=== PATIENT | female | born 1955 ===

== ENCOUNTER 2016-09-10 09:38 | Inpatient (IN) | payer MEDICAID ==
[2016-09-10] MEDS ORDERED: Sodium Chloride 0.9% 1,000 ML IV STA (10:07)
[2016-09-10] MEDS ORDERED: Sodium Chloride 0.9% 1,000 ML ONE (11:02)
[2016-09-10 11:07] LABS: BASO % 0.7 % (0.0-2.0); EOS % 0.6 % (0.0-4.0); HEMATOCRIT 40.2 % (34.0-47.0); LYMPH % 14.3 % (20.0-40.0); MEAN CELL VOLUME 89.7 fL (81.0-99.0); MEAN CORPUSCULAR HEMOGLOBIN 29.6 pg (27.0-31.0); MEAN PLATELET VOLUME 8.5 fL (7.2-11.7); MONO # 0.3 K/uL (0.0-0.8); RED CELL DISTRIBUTION WIDTH 16.4 % (11.5-14.5); WHITE BLOOD COUNT 6.9 K/uL (4.8-10.8)
[2016-09-10 11:28] LABS: CHLORIDE 105 mmol/L (98-107); POTASSIUM 3.2 mmol/L (3.6-5.2); SODIUM 140 mmol/L (132-148)
[2016-09-10 11:30] LABS: AST/SGOT 34 U/L (14-36); BILIRUBIN,TOTAL 0.7 mg/dL (0.2-1.3); CARBON DIOXIDE 21 mmol/L (22-30); GFR AFRICAN-AMERICAN > 60
[2016-09-10 11:31] LABS: ALB/GLOB RATIO 1.3 (1.0-2.1); ALKALINE PHOSPHATASE 81 U/L (38-126); ALT/SGPT 33 U/L (9-52); BLOOD UREA NITROGEN 13 mg/dL (7-17); CALCIUM 9.4 mg/dl (8.6-10.4); GLUCOSE,RANDOM 129 mg/dL (65-105); TOTAL PROTEIN 7.3 g/dL (6.3-8.3)
--- NOTE | 2016-09-10 11:34 | C.PDOC ---
History Of Present Illness 61 year old patient, with a past medical history of hypertension, is brought to the ED by ambulance complaining of feeling dizzy since this morning. She describes her dizziness feels like vertigo. She also complains of nausea and several episodes of vomiting. Patient denies abdominal pain, numbness, weakness , or headache. Time Seen by Provider: 09/10/16 10:07 Chief Complaint (Nursing): GI Problem History Per: Patient History/Exam Limitations: no limitations Onset/Duration Of Symptoms: Worse Since (this morning) Current Symptoms Are (Timing): Still Present Context: Other Associated Symptoms: Nausea, Vomiting Exacerbating Factors: None Alleviating Factors: None Last Bowel Movement: Today Recent travel outside of the [place]: No Past Medical History Reviewed: Historical Data, Nursing Documentation, Vital Signs Vital Signs: Last Vital Signs Temp 97.6 F 09/10/16 12:49 Pulse 62 09/10/16 15:45 Resp 16 09/10/16 15:45 BP 164/87 H 09/10/16 15:45 Pulse Ox 99 09/10/16 15:53 - Medical History PMH: HTN Family History: States: Unknown Family Hx - Social History Hx Alcohol Use: No Hx Substance Use: No - Immunization History Hx Tetanus Toxoid Vaccination: No Hx Influenza Vaccination: No Hx Pneumococcal Vaccination: No Review Of Systems Except As Marked, All Systems Reviewed And Found Negative. Gastrointestinal: Positive for: Nausea, Vomiting. Negative for: Abdominal Pain Neurological: Positive for: Dizziness. Negative for: Weakness, Numbness, Headache Physical Exam - Physical Exam Appears: Non-toxic, No Acute Distress Skin: Warm, Dry Head: Atraumatic, Normacephalic Eye(s): bilateral: PERRL, EOMI, left: Normal Inspection (B/L horizontal and rotatory nystagmus) Ear(s): Bilateral: Normal Nose: Normal Oral Mucosa: Moist Throat: Normal Neck: Normal ROM, Supple Chest: Symmetrical Cardiovascular: Rhythm Regular Respiratory: Normal Breath Sounds, No Rales, No Rhonchi, No Wheezing Gastrointestinal/Abdominal: Soft, No Tenderness Back: Normal Inspection, No CVA Tenderness Extremity: Normal ROM Extremity: Bilateral: Atraumatic Neurological/Psych: Oriented x3, Normal Speech, Normal Cognition, Normal Motor, Normal Sensation Gait: Steady ED Course And Treatment - Laboratory Results Result Diagrams: 09/10/16 11:01 09/10/16 11:01 ECG: Interpreted By Me, Viewed By Wy ECG Rhythm: Sinus Bradycardia Interpretation Of ECG: T inversions in 3 Rate From EC (bpm) O2 Sat by Pulse Oximetry: 99 (room air) Pulse Ox Interpretation: Normal - Other Rad chest x-ray X-Ray: Read By Radiologist (Donna Gallagher MD) Interpretation: HISTORY: dizzy, vomiting. COMPARISON: Chest x-ray performed . TECHNIQUE: Chest, one view. FINDINGS: Examination limited by habitus. LUNGS: Bilateral lower lobe infiltrates. Please note that chest x- ray has limited sensitivity for the detection of pulmonary masses. PLEURA: No significant pleural effusion identified. No definite pneumothorax . CARDIOVASCULAR: Heart size appears top normal. Ectatic aorta. OSSEOUS STRUCTURES: No acute osseous abnormality identified. VISUALIZED UPPER ABDOMEN : Unremarkable. OTHER FINDINGS: None. IMPRESSION: Bilateral lower lobe infiltrates. Heart size appears top normal. Ectatic aorta. - CT Scan/US Head CT Other Rad Studies (CT/US): Read By Radiologist (Donna Gallagher MD), Radiology Report Reviewed CT/US Interpretation: PROCEDURE: CT HEAD WITHOUT CONTRAST. HISTORY: dizzy, vomiting. COMPARISON: None available. TECHNIQUE: Axial computed tomography images were obtained through the head/brain without intravenous contrast. Radiation dose: Total exam DLP = 882.55 mGy-cm. This CT exam was performed using one or more of the following dose reduction techniques: Automated exposure control, adjustment of the mA and/or kV according to patient size, and/ or use of iterative reconstruction technique. FINDINGS: HEMORRHAGE: No intracranial hemorrhage. BRAIN: No mass effect or edema. Intracranial atherosclerotic calcifications. The figueroa-white matter differentiation appears intact. Please note that MRI with diffusion imaging is more sensitive in the detection of acute ischemic event. VENTRICLES: No hydrocephalus. CALVARIUM: Unremarkable. PARANASAL SINUSES: Unremarkable as visualized. No significant inflammatory changes. MASTOID AIR CELLS: Partial opacification of the right mastoid air cells. The left mastoid air cells appear clear. OTHER FINDINGS: Subcutaneous partially calcified nodules probably possibly sebaceous cysts. IMPRESSION: No acute intracranial pathology identified. Partial opacification of the right mastoid air cells. Correlate clinically for possibility of mastoiditis. Progress Note: Plan: Head CT, EKG, Labs, Chest x-ray, IV fluids, Zofran and Antivert po. On re-exam patient feels slightly better, no more vomiting, but still c/o dizziness. case was d/w who accepted patient to his servivce and requested Neurology consult . Progress: Case discussed with Dr. Pierce who is requesting Losartan 25 mg po, Plavix 75 mg po, Lipid profile, thyroid function test, Hemoglobin A1C, Brain MRI without contrast, and carotid duplex study. Disposition - Disposition Disposition: HOSPITALIZED Disposition Time: 15:25 Condition: FAIR - Clinical Impression Clinical Impression: Vertigo - PA / SILK EXAMINER / Resident Statement MD/DO has reviewed & agrees with the documentation as recorded. - Scribe Statement The provider has reviewed the documentation as recorded by the Scribe Thalia Mckinnon All medical record entries made by the Scribe were at my direction and personally dictated by me. I have reviewed the chart and agree that the record accurately reflects my personal performance of the history, physical exam, medical decision making, and the department course for this patient. I have also personally directed, reviewed, and agree with the discharge instructions and disposition. Decision To Admit - Pt Status Changed To: Hospital Disposition Of: Observation - . Bed Request Type: Regular Admitting Physician: Brennan Mckinnon Patient Diagnosis: Vertigo
--- NOTE | 2016-09-10 13:02 | RAD ---
HISTORY: dizzy, vomiting COMPARISON: Chest x-ray performed 06/04/12 TECHNIQUE: Chest, one view. FINDINGS: Examination limited by habitus. LUNGS: Bilateral lower lobe infiltrates. Please note that chest x-ray has limited sensitivity for the detection of pulmonary masses. PLEURA: No significant pleural effusion identified. No definite pneumothorax . CARDIOVASCULAR: Heart size appears top normal. Ectatic aorta. OSSEOUS STRUCTURES: No acute osseous abnormality identified. VISUALIZED UPPER ABDOMEN: Unremarkable. OTHER FINDINGS: None. IMPRESSION: Bilateral lower lobe infiltrates. Heart size appears top normal. Ectatic aorta.
[2016-09-10 13:21] LABS: RBC URINE 1 /hpf (0-3); URINE BACTERIA RARE (<OCC); URINE BILIRUBIN NEGATIVE (NEGATIVE); URINE BLOOD 2+ (NEGATIVE); URINE COLOR Yellow (YELLOW); URINE GLUCOSE (UA) NORMAL (Normal); URINE KETONE NEGATIVE (NEGATIVE); URINE LEUKOCYTE ESTERASE NEG Leu/uL (Negative); URINE PROTEIN 2+ mg/dL (NEGATIVE); URINE UROBILINOGEN NORMAL mg/dL (0.2-1.0); WBC URINE 1 /hpf (0-5)
[2016-09-10] MEDS ORDERED: Losartan 12.5 MG TAB PO STA (15:32)
--- NOTE | 2016-09-10 17:19 | CP.PCM.HP ---
Past Patient History - Infectious Disease Hx of Infectious Diseases: None - Past Social History Smoking Status: Never Smoked - CARDIAC Hx Hypertension: Yes - PSYCHIATRIC Hx Substance Use: No - ANESTHESIA Hx Anesthesia: Yes Meds Allergies/Adverse Reactions: Allergies Allergy/AdvReac Type Severity Reaction Status Date / Time No Known Allergies Allergy Verified 09/10/16 15:47 Physical Exam - Constitutional Appears: Well - Head Exam Head Exam: ATRAUMATIC, NORMAL INSPECTION, NORMOCEPHALIC - Eye Exam Eye Exam: EOMI, Normal appearance, PERRL Pupil Exam: NORMAL ACCOMODATION, PERRL - ENT Exam ENT Exam: Mucous Membranes Moist, Normal Exam - Neck Exam Neck exam: Positive for: Normal Inspection - Respiratory Exam Respiratory Exam: Decreased Breath Sounds - Cardiovascular Exam Cardiovascular Exam: REGULAR RHYTHM, +S1, +S2 - GI/Abdominal Exam GI & Abdominal Exam: Diminished Bowel Sounds, Soft - Rectal Exam Rectal Exam: Deferred Results - Vital Signs Recent Vital Signs: Last Vital Signs Temp 97.6 F 09/10/16 12:49 Pulse 62 09/10/16 15:45 Resp 16 09/10/16 15:45 BP 164/87 H 09/10/16 15:45 Pulse Ox 99 09/10/16 15:53 - Labs Result Diagrams: 09/10/16 11:01 09/10/16 11:01 Labs: Laboratory Results - last 24 hr 09/10/16 09/10/16 16:39 16:39 Hemoglobin A1c 5.4 Triglycerides 137 Cholesterol 206 H LDL Cholesterol Direct 61 HDL Cholesterol 57
[2016-09-10 17:36] LABS: THYROID STIMULATING HORMONE 0.68 mIU/L (0.46-4.68)
[2016-09-10] MEDS ORDERED: Potassium Chloride 20 mEq/15 ml LIQ UD PO ONE (17:47)
[2016-09-10 17:53] LABS: FT3 2.85 pg/mL (2.77-5.27)
[2016-09-10] MEDS: Enoxaparin 40 mg Syringe SC SCH (19:35)
[2016-09-10] MEDS: Sodium Chloride 0.9% 1,000 ML IV SCH (19:39)
[2016-09-10] MEDS: Moxifloxacin IV 400mg/250ml NS 400 MG/250 ML BAG IVPB SCH ×2 (21:00→22:14)
[2016-09-11 06:11] LABS: HEMATOCRIT 37.6 % (34.0-47.0); MEAN CELL VOLUME 89.3 fL (81.0-99.0); MEAN CORPUSCULAR HEMOGLOBIN 29.3 pg (27.0-31.0); MEAN CORPUSCULAR HGB CONC 32.8 g/dL (33.0-37.0); MEAN PLATELET VOLUME 8.5 fL (7.2-11.7); RED CELL DISTRIBUTION WIDTH 16.7 % (11.5-14.5); WHITE BLOOD COUNT 6.3 K/uL (4.8-10.8)
[2016-09-11 06:49] LABS: CHLORIDE 107 mmol/L (98-107); POTASSIUM 3.7 mmol/L (3.6-5.2); SODIUM 142 mmol/L (132-148)
[2016-09-11 06:52] LABS: ALB/GLOB RATIO 1.1 (1.0-2.1); ALKALINE PHOSPHATASE 70 U/L (38-126); ALT/SGPT 28 U/L (9-52); AST/SGOT 24 U/L (14-36); BILIRUBIN,TOTAL 0.8 mg/dL (0.2-1.3); BLOOD UREA NITROGEN 10 mg/dL (7-17); CARBON DIOXIDE 26 mmol/L (22-30); GFR AFRICAN-AMERICAN > 60; GLUCOSE,RANDOM 93 mg/dL (65-105); TOTAL PROTEIN 6.5 g/dL (6.3-8.3)
[2016-09-11 07:14] LABS: THYROID STIMULATING HORMONE 0.79 mIU/L (0.46-4.68)
--- NOTE | 2016-09-11 08:06 | CON ---
DATE: 09/11/2016 ATTENDING PHYSICIAN: Immanuel Mckinnon MD The patient's room #357, bed B. REASON FOR CONSULTATION: Dizziness. CHIEF COMPLAINT: The patient was brought to [facility] ([facility]] with a history of dizziness. Associatin g with nausea and vomiting. She denies any visual or auditory disturbances. However, she admits to nausea and vomiting, was persistent at home. No history of recent travel. No history of recent medi cation. No history of recent fever or flu. PAST MEDICAL HISTORY: Hypertension. PERSONAL HISTORY: Denies smoking or alcohol use. ALLERGIES: No known allergies. MEDICATIONS: Avelox, potassium supplement, Lovenox, pantoprazole, IV fluids with meclizine. PHYSICAL EXAMINATION: VITAL SIGNS: Blood pressure 131/76, mean arterial pressure of 94, respiratory rate 16, temperature a febrile. NECK: Supple. No carotid bruit. HEART: Sounds are regular. CHEST: Fair air entry. EXTREMITIES: No edema in legs. NEUROLOGIC EXAMINATION: MENTAL STATUS EXAMINATION: She is awake, alert, oriented to person, place, and time. Speech is veronica r. Naming, repetition, fluency, comprehension all within normal. CRANIAL NERVE EXAMINATION: Visual field intact. Extraocular movement intact. Pupils reactive to li ght. No facial sensory deficit. Mild facial asymmetry manifesting as a flattening of the left nasol abial fold. Hearing is normal. HEART: Sounds, regular. CHEST: Fair air entry. EXTREMITIES: No edema in legs. MOTOR: Outstretched hand with eyes closed, no drift noted. Power is symmetric on either side. DEEP TENDON REFLEXES: The reflexes in the upper extremities are 2+, both knees are absent, both ankl es are absent. Plantars are downgoing. SENSORY EXAMINATION: Grossly intact. COORDINATION: Vmbpgp-[id number]-oivm test is intact. Extraocular movement shows a right lateral gaze. ____ _ nystagmus noted. COORDINATION: Iyufap-mspj-kjdzla test is intact. GAIT: She is able to stand up on her own. Romberg sign and tandem walking is poor. 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 Considering her risk factors, vertebrobasilar insufficiency should be ruled out. DIAGNOSTIC WORKUP: CT of the head unremarkable. MRI of the brain: No acute pathologies noted. EKG normal sinus rhythm. BLOOD WORKUP: WBC 6.3, hemoglobin 12.3, hematocrit 37.6, platelet 208. Sodium 142, potassium 3.7, c hloride 107, bicarbonate 26, BUN 10, creatinine 0.8. GFR more than 60. Cholesterol 206, LDL 61, HDL 57. TSH 0.68. Urinalysis shows nitrite positive with 2+ blood. RECOMMENDATIONS: IV hydration and proper antibiotic for her urinary tract infection. I agree with a ntiplatelets because of risk factors and her physique. The patient's condition has been discussed with her weight reduction and blood pressure control and d iet restriction is also discussed with her. The patient is stable today. The patient can be discharged and to follow up with me as outpatient. Laith Pierce MD cc: [id number] TT: 09/11/2016 08:05:45 Confirmation # [id number] Dictation # [id number]
--- NOTE | 2016-09-11 10:16 | MRI ---
PROCEDURE: MRI BRAIN WITHOUT CONTRAST HISTORY: vertigo, vomiting COMPARISON: Comparison made with prior CT scan brain 09/10/2016. TECHNIQUE: Multiplanar, multisequence MR images of the brain were obtained without intravenous contrast enhancement. FINDINGS: HEMORRHAGE: No acute parenchymal, subarachnoid or extra-axial hemorrhage. No hemosiderin deposition identified on gradient echo weighted images. DWI: There are rule out acute infarcts seen on diffusion imaging. . BRAIN PARENCHYMA: Minor slightly confluent prolonged T2 signal changes within the periventricular white matter most conspicuous in the subpleural regions. In addition, there are multiple small focal areas of increased T2 signal scattered about the deep and subcortical white matter both cerebral hemispheres as well as brainstem. Changes are most likely represent chronic sequela of small vessel disease. Ventricular and sulcal size are within range of normal this patient's stated VENTRICLES: No evidence of obstructive hydrocephalus. CRANIUM: Unremarkable. ORBITS: Grossly unremarkable. PARANASAL SINUSES/MASTOIDS: Note again made of partial opacification of the right mastoid air complex. Minimal mucosal thickening and/or fluid in the left mastoid air cells. Minor mucosal thickening both maxillary antra as well as a few ethmoid air cells. VASCULAR SYSTEM: Visualized major vascular flow voids at skull base are patent. OTHER FINDINGS: Two small nodular densities within the right posterior superior parietal scalp 1 of which contain some calcification again noted. These findings are seen to better advantage on prior CT scan. IMPRESSION: No acute intracranial hemorrhage. Suspect mild chronic white matter and brainstem ischemic changes as detailed above. Partial opacification right mastoid air complex with minimal mucosal thickening and/or fluid few left-sided mastoid air cells. Minor mucosal thickening both maxillary antra as well as a few ethmoid air cells.
[2016-09-11] MEDS: Enoxaparin 40 mg Syringe SC SCH (11:27)
[2016-09-11] MEDS: Pantoprazole 40 mg EC Tab PO SCH (11:27)
[2016-09-11] MEDS: Potassium Chloride 20 mEq ER Tab PO SCH (11:27)
[2016-09-11] MEDS: Sodium Chloride 0.9% 1,000 ML IV SCH ×2 (11:28→23:28)
--- NOTE | 2016-09-11 12:24 | CP.PCM.PN ---
Subjective - Date & Time of Evaluation Date of Evaluation: 09/11/16 Time of Evaluation: 08:40 - Subjective Subjective: clinically same Objective - Vital Signs/Intake and Output Vital Signs (last 24 hours): Temp Pulse Resp BP Pulse Ox 98.7 F 60 20 129/76 97 09/11/16 08:00 09/11/16 08:00 09/11/16 08:00 09/11/16 08:00 09/11/16 08:00 Intake and Output: 09/11/16 09/11/16 06:59 18:59 Intake Total 1420 Balance 1420 - Medications Medications: Current Medications Atenolol (Tenormin) 50 mg PO DAILY [facility] Enoxaparin Sodium (Lovenox) 40 mg SC DAILY [facility] Last Admin: 09/11/16 11:27 Dose: 40 mg Moxifloxacin HCl (Avelox Iv 400mg/250ml Ns) 400 mg in 250 mls @ 167 mls/hr IVPB Q24H [facility] Last Admin: 09/10/16 22:14 Dose: 167 mls/hr Sodium Chloride (Sodium Chloride 0.9%) 1,000 mls @ 60 mls/hr IV .[id number] [facility] Last Admin: 09/11/16 11:28 Dose: 60 mls/hr Losartan Potassium (Cozaar) 100 mg PO DAILY [facility] Meclizine HCl (Antivert) 25 mg PO Q8H [facility] Last Admin: 09/11/16 11:27 Dose: 25 mg Pantoprazole Sodium (Protonix Ec Tab) 40 mg PO DAILY [facility] Last Admin: 09/11/16 11:27 Dose: 40 mg Pneumococcal Polyvalent Vaccine (Pneumovax 23 Vaccine) 0.5 ml IM .ONCE ONE Stop: 09/12/16 10:01 Potassium Chloride (K-Dur 20 Meq Er Tab) 40 meq PO DAILY [facility] Last Admin: 09/11/16 11:27 Dose: 40 meq - Labs Labs: 09/11/16 05:58 09/11/16 05:58 - Constitutional Appears: Well - Head Exam Head Exam: ATRAUMATIC, NORMAL INSPECTION, NORMOCEPHALIC - Eye Exam Eye Exam: EOMI, Normal appearance, PERRL Pupil Exam: NORMAL ACCOMODATION, PERRL - ENT Exam ENT Exam: Mucous Membranes Moist, Normal Exam - Neck Exam Neck Exam: Full ROM, Normal Inspection. absent: Lymphadenopathy - Respiratory Exam Respiratory Exam: Decreased Breath Sounds - Cardiovascular Exam Cardiovascular Exam: REGULAR RHYTHM, +S1, +S2 - GI/Abdominal Exam GI & Abdominal Exam: Soft, Diminished Bowel Sounds - Rectal Exam Rectal Exam: Deferred
[2016-09-11] MEDS ORDERED: Ergocalciferol 50,000 Intl Units Cap PO SCH (14:15)
--- NOTE | 2016-09-11 14:17 | CP.PCM.PN ---
Subjective - Date & Time of Evaluation Date of Evaluation: 09/11/16 Time of Evaluation: 07:15 - Subjective Subjective: PGY2 Medicine Note - Dr. Winnie Mckinnon's service: Patient seen and examined at bedside this AM. Patient reports resolved dizziness. She also no longer feels nauseous and has not vomited since yesterday. Patient denies fever, chills, chest pain, SOB, constipation, diarrhea. Objective - Vital Signs/Intake and Output Vital Signs (last 24 hours): Temp Pulse Resp BP Pulse Ox 98.7 F 60 20 129/76 97 09/11/16 08:00 09/11/16 08:00 09/11/16 08:00 09/11/16 08:00 09/11/16 08:00 Intake and Output: 09/11/16 09/11/16 06:59 18:59 Intake Total 1420 240 Balance 1420 240 - Medications Medications: Current Medications Atenolol (Tenormin) 50 mg PO DAILY [facility] Enoxaparin Sodium (Lovenox) 40 mg SC DAILY [facility] Last Admin: 09/11/16 11:27 Dose: 40 mg Moxifloxacin HCl (Avelox Iv 400mg/250ml Ns) 400 mg in 250 mls @ 167 mls/hr IVPB Q24H [facility] Last Admin: 09/10/16 22:14 Dose: 167 mls/hr Sodium Chloride (Sodium Chloride 0.9%) 1,000 mls @ 60 mls/hr IV .[id number] [facility] Last Admin: 09/11/16 11:28 Dose: 60 mls/hr Losartan Potassium (Cozaar) 100 mg PO DAILY [facility] Meclizine HCl (Antivert) 25 mg PO Q8H [facility] Last Admin: 09/11/16 11:27 Dose: 25 mg Pantoprazole Sodium (Protonix Ec Tab) 40 mg PO DAILY [facility] Last Admin: 09/11/16 11:27 Dose: 40 mg Pneumococcal Polyvalent Vaccine (Pneumovax 23 Vaccine) 0.5 ml IM .ONCE ONE Stop: 09/12/16 10:01 Potassium Chloride (K-Dur 20 Meq Er Tab) 40 meq PO DAILY [facility] Last Admin: 09/11/16 11:27 Dose: 40 meq - Labs Labs: 09/11/16 05:58 09/11/16 05:58 - Constitutional Appears: Non-toxic, No Acute Distress - Head Exam Head Exam: NORMAL INSPECTION - Eye Exam Eye Exam: EOMI - ENT Exam ENT Exam: Mucous Membranes Moist - Respiratory Exam Respiratory Exam: Clear to Ausculation Bilateral, NORMAL BREATHING PATTERN. absent: Rales, Rhonchi, Wheezes - Cardiovascular Exam Cardiovascular Exam: REGULAR RHYTHM, +S1, +S2. absent: Gallop, Rubs - GI/Abdominal Exam GI & Abdominal Exam: Soft, Normal Bowel Sounds. absent: Tenderness - Extremities Exam Extremities Exam: absent: Pedal Edema - Neurological Exam Neurological Exam: Alert, Awake, Oriented x3 - Psychiatric Exam Psychiatric exam: Normal Affect, Normal Mood - Skin Skin Exam: Normal Color, Warm Assessment and Plan - Assessment and Plan (Free Text) Assessment: Dizziness Head CT - possible mastoiditis (please see full report) Brain MRI - no acute intracranial hemorrhage. Suspect mild chronic white matter and brainstem ischemic changes. Partial opacification right mastoid air complex with minimal mucosal thickening and/or fluid few left-sided mastoid air cells. Minor mucosal thickening both maxillary antra as well as a few ethmoid air cells. EKG - sinus bradycardia at 59 bpm TSH 0.79 Troponin negative Vitamin D 17.8, B12 426 Cholesterol 206, LDL 61, HDL 57 F/U RPR and folate F/U ECHO and carotid US report Neurology consult - Dr. Pierce - recommends outpatient follow up for vestibular neuritis - help appreciated ASA 81mg PO daily Crestor 10mg PO HS Meclizine 25mg PO Q8H Mastoiditis ENT consult - Dr. Baldwin - f/u recs Avelox 400mg IVPB daily ordered by Dr. Winnie Mckinnon Nausea and Vomiting Likely from gastroenteritis Vitamin D deficiency Ergocalciferol [id number] PO weekly UTI UA + nitrates F/U urine culture Prophylaxis Lovenox 40mg SC daily Protonix 40mg PO daily
--- NOTE | 2016-09-11 16:18 | CON ---
DATE: 09/11/2016 REASON FOR CONSULTATION: Fluid in the mastoid air cells, possible mastoiditis. REQUESTING PHYSICIAN: Dr. Mckinnon. HISTORY OF PRESENT ILLNESS: This is a 61-year-old female who was noted to have some fluid in the mas toid air cells on radiology. The patient does not complain of hearing loss, ear pain, ringing in the ear or any ear complaints. PAST MEDICAL HISTORY: As noted in the chart by me. MEDICATIONS: As noted in the chart by me. PHYSICAL EXAMINATION: HEAD: Atraumatic, normocephalic. FACE: Good facial movements bilaterally. CONSTITUTIONAL: Well-developed, well-nourished. COMMUNICATION: Communicates very appropriately. EXTERNAL NOSE AND EARS: No masses, no lesions, no erythema, no edema. INTERNAL NOSE: Deviated septum, no masses, no lesions, no erythema, no edema. ORAL CAVITY, OROPHARYNX: No masses, no lesions, no erythema, no edema. LIPS, GUMS: No masses, no lesions, no erythema, no edema. NECK: Supple. THYROID: No thyromegaly, no goiter. LYMPH NODES: No lymphadenopathy of the neck. CAT scan was reviewed by me. It shows patchy opacification of some of the mastoid air cells on the r ight. There is no evidence of bony destruction. The patient also does not complain of any pain. In ternal nose, deviated septum, no masses, no lesions, no erythema, no edema. ASSESSMENT: 1. Deviated septum. 2. Mastoiditis not noted on the CAT scan and not noted clinically. This patient does not have masto iditis. Anil Baldwin MD cc: [id number] TT: 09/11/2016 16:17:37 Confirmation # [id number] Dictation # [id number]
[2016-09-11] MEDS: Moxifloxacin IV 400mg/250ml NS 400 MG/250 ML BAG IVPB SCH (21:35)
[2016-09-12] MEDS: Sodium Chloride 0.9% 1,000 ML IV SCH ×2 (04:35→21:37)
[2016-09-12] MEDS ORDERED: Pneumococcal 23-Valent Vaccine IM ONE (10:00)
[2016-09-12] MEDS: Pantoprazole 40 mg EC Tab PO SCH (10:17)
[2016-09-12] MEDS: Potassium Chloride 20 mEq ER Tab PO SCH (10:17)
--- NOTE | 2016-09-12 10:19 | CP.PCM.PN ---
Subjective - Date & Time of Evaluation Date of Evaluation: 09/12/16 Time of Evaluation: 08:40 - Subjective Subjective: clinically same Objective - Vital Signs/Intake and Output Vital Signs (last 24 hours): Temp Pulse Resp BP Pulse Ox 97.9 F 62 20 150/92 H 97 09/12/16 00:00 09/12/16 00:00 09/12/16 00:00 09/12/16 00:00 09/12/16 00:00 Intake and Output: 09/12/16 09/12/16 06:59 18:59 Intake Total 1280 Balance 1280 - Medications Medications: Current Medications Aspirin (Ecotrin) 81 mg PO DAILY [facility] Atenolol (Tenormin) 50 mg PO DAILY [facility] Enoxaparin Sodium (Lovenox) 40 mg SC DAILY [facility] Last Admin: 09/11/16 11:27 Dose: 40 mg Ergocalciferol (Drisdol 50,000 Intl Units Cap) 1 cap PO Q7D [facility] Last Admin: 09/11/16 14:43 Dose: 1 cap Moxifloxacin HCl (Avelox Iv 400mg/250ml Ns) 400 mg in 250 mls @ 167 mls/hr IVPB Q24H [facility] Last Admin: 09/11/16 21:35 Dose: 167 mls/hr Sodium Chloride (Sodium Chloride 0.9%) 1,000 mls @ 60 mls/hr IV .[id number] [facility] Last Admin: 09/12/16 04:35 Dose: Not Given Losartan Potassium (Cozaar) 100 mg PO DAILY [facility] Meclizine HCl (Antivert) 25 mg PO Q8H [facility] Last Admin: 09/12/16 02:28 Dose: 25 mg Pantoprazole Sodium (Protonix Ec Tab) 40 mg PO DAILY [facility] Last Admin: 09/11/16 11:27 Dose: 40 mg Potassium Chloride (K-Dur 20 Meq Er Tab) 40 meq PO DAILY [facility] Last Admin: 09/11/16 11:27 Dose: 40 meq Rosuvastatin Calcium (Crestor) 5 mg PO HS [facility] Last Admin: 09/11/16 21:36 Dose: 5 mg - Labs Labs: 09/11/16 05:58 09/11/16 05:58 - Constitutional Appears: Well - Head Exam Head Exam: ATRAUMATIC, NORMAL INSPECTION, NORMOCEPHALIC - Eye Exam Eye Exam: EOMI, Normal appearance, PERRL Pupil Exam: NORMAL ACCOMODATION, PERRL - ENT Exam ENT Exam: Mucous Membranes Moist, Normal Exam - Neck Exam Neck Exam: Full ROM, Normal Inspection. absent: Lymphadenopathy - Respiratory Exam Respiratory Exam: Decreased Breath Sounds - Cardiovascular Exam Cardiovascular Exam: REGULAR RHYTHM, +S1, +S2 - GI/Abdominal Exam GI & Abdominal Exam: Soft, Diminished Bowel Sounds - Rectal Exam Rectal Exam: Deferred
[2016-09-12] MEDS: Enoxaparin 40 mg Syringe SC SCH (10:26)
[2016-09-12 16:38] VITALS: RESP 20
--- NOTE | 2016-09-12 16:45 | CARD ---
APPROVED REPORT EXAM: Two-dimensional and M-mode echocardiogram with Doppler and color Doppler. Other Information Quality : GoodRhythm : NSR INDICATION Dizziness and Vertigo RISK FACTORS Hypertension M-Mode DIMENSIONS RVDd1.11 (2.1-3.2cm)Left Atrium (MM)4.51 (2.5-4.0cm) IVSd1.07 (0.7-1.1cm)Aortic Root2.98 (2.2-3.7cm) LVDd4.72 (4.0-5.6cm)Aortic Cusp Exc.1.21 (1.5-2.0cm) PWd1.17 (0.7-1.1cm)FS (%) 42 % LVDs2.73 (2.0-3.8cm)LVEF (%)73 (>50%) Mitral Valve MV E Jkiiostt07.3cm/sMV A Tztxprcc40.0cm/sE/A ratio0.7 TDI E/Lateral E'0.0E/Medial E'0.0 Tricuspid Valve TR Peak Nteulujx810qa/sTR Peak Gr.[id number] LEFT VENTRICLE The left ventricle is normal size. There is normal left ventricular wall thickness. Left ventricle systolic function is normal. The Ejection Fraction is >70%. There is normal LV segmental wall motion. Tissue Doppler imaging reveals abnormal left ventricular diastolic dysfunction. RIGHT VENTRICLE The right ventricle is normal size. There is normal right ventricular wall thickness. The right ventricular systolic function is normal. ATRIA The left atrium size is normal. The right atrium size is normal. The interatrial septum is intact with no evidence for an atrial septal defect. AORTIC VALVE The aortic valve is normal in structure. No aortic regurgitation is present. There is no aortic valvular stenosis. There is no aortic valvular vegetation. MITRAL VALVE The mitral valve is normal in structure. There is no evidence of mitral valve prolapse. There is no mitral valve stenosis. There is no mitral valve regurgitation noted. TRICUSPID VALVE The tricuspid valve is normal in structure. There is trace tricuspid regurgitation. Right ventricular systolic pressure is estimated at 30 mmHg. There is borderline pulmonary hypertension. PULMONIC VALVE The pulmonic valve is not well visualized. There is no pulmonic valvular regurgitation. GREAT VESSELS The aortic root is normal in size. PERICARDIAL EFFUSION There is no significant pericardial effusion. <Conclusion> Left ventricle systolic function is normal. The Ejection Fraction is >70%. Diastolic dysfunction. No aortic regurgitation is present. There is no mitral valve regurgitation noted. There is trace tricuspid regurgitation. There is borderline pulmonary hypertension. There is no pulmonic valvular regurgitation.
[2016-09-12] MEDS: Moxifloxacin IV 400mg/250ml NS 400 MG/250 ML BAG IVPB SCH (21:35)
[2016-09-13] MEDS: Sodium Chloride 0.9% 1,000 ML IV SCH (03:04)
--- NOTE | 2016-09-13 08:42 | CARD ---
APPROVED REPORT EKG Measurement Heart [id number] <Conclusion> Sinus bradycardia Otherwise normal ECG
[2016-09-13] MEDS: Enoxaparin 40 mg Syringe SC SCH (09:34)
[2016-09-13] MEDS: Pantoprazole 40 mg EC Tab PO SCH (09:34)
[2016-09-13] MEDS ORDERED: Pneumococcal 23-Valent Vaccine IM ONE (10:00)
[2016-09-13] MEDS: Moxifloxacin IV 400mg/250ml NS 400 MG/250 ML BAG IVPB SCH (20:41)
[2016-09-14 00:44] VITALS: TEMP 98
[2016-09-14] MEDS: Pantoprazole 40 mg EC Tab PO SCH (09:30)
[2016-09-14] MEDS: Enoxaparin 40 mg Syringe SC SCH (09:31)
--- NOTE | 2016-09-14 12:07 | CP.PCM.PN ---
Subjective - Date & Time of Evaluation Date of Evaluation: 09/14/16 Time of Evaluation: 08:00 - Subjective Subjective: PGY2 Medicine Discharge Note - Dr. Mckinnon's Service Patient to be discharged home per Dr. Winnie Mckinnon. Patient should take new medications as prescribed including vitamin D3 [id number] by mouth once a week for 6 months, Cipro 500mg 1 tab twice a day by mouth for 5 days and meclizine 25mg by mouth three times a day as needed for dizziness. Patient should make an appointment and follow up with neurologist, Dr. Pierce, within one week. Patient should also make an appointment and follow up with Dr. Winnie Mckinnon this Wednesday. Patient should return to ED immediately if symptoms return or worsen. Patient is to continue home HTN medications: HCTZ 25mg PO qd, Atenolol 50mg PO qd, Losartan 100mg PO qd. Instructions discussed with patient who understood and agreed. Objective - Vital Signs/Intake and Output Vital Signs (last 24 hours): Temp Pulse Resp BP Pulse Ox 98 F 60 20 150/88 98 09/14/16 07:24 09/14/16 07:24 09/14/16 07:24 09/14/16 07:24 09/14/16 07:24 Intake and Output: 09/14/16 09/14/16 06:59 18:59 Intake Total 750 Balance 750 - Medications Medications: Current Medications Aspirin (Ecotrin) 81 mg PO DAILY [facility] Last Admin: 09/14/16 09:31 Dose: 81 mg Atenolol (Tenormin) 50 mg PO DAILY [facility] Last Admin: 09/14/16 09:30 Dose: 50 mg Enoxaparin Sodium (Lovenox) 40 mg SC DAILY [facility] Last Admin: 09/14/16 09:31 Dose: 40 mg Ergocalciferol (Drisdol 50,000 Intl Units Cap) 1 cap PO Q7D [facility] Last Admin: 09/11/16 14:43 Dose: 1 cap Moxifloxacin HCl (Avelox Iv 400mg/250ml Ns) 400 mg in 250 mls @ 167 mls/hr IVPB Q24H [facility] Last Admin: 09/13/16 20:41 Dose: 167 mls/hr Losartan Potassium (Cozaar) 100 mg PO DAILY [facility] Last Admin: 09/14/16 09:30 Dose: 100 mg Meclizine HCl (Antivert) 25 mg PO Q8H [facility] Last Admin: 09/14/16 09:30 Dose: 25 mg Pantoprazole Sodium (Protonix Ec Tab) 40 mg PO DAILY [facility] Last Admin: 09/14/16 09:30 Dose: 40 mg Rosuvastatin Calcium (Crestor) 5 mg PO HS [facility] Last Admin: 09/13/16 21:39 Dose: 5 mg - Additional Findings Additional findings: - Constitutional Appears: Non-toxic, No Acute Distress - Head Exam Head Exam: NORMAL INSPECTION - Eye Exam Eye Exam: EOMI - ENT Exam ENT Exam: Mucous Membranes Moist - Respiratory Exam Respiratory Exam: Clear to Ausculation Bilateral, NORMAL BREATHING PATTERN. absent: Rales, Rhonchi, Wheezes - Cardiovascular Exam Cardiovascular Exam: REGULAR RHYTHM, +S1, +S2. absent: Gallop, Rubs - GI/Abdominal Exam GI & Abdominal Exam: Soft, Normal Bowel Sounds. absent: Tenderness - Extremities Exam Extremities Exam: absent: Pedal Edema - Neurological Exam Neurological Exam: Alert, Awake, Oriented x3 - Psychiatric Exam Psychiatric exam: Normal Affect, Normal Mood - Skin Skin Exam: Normal Color, Warm, Intact
--- NOTE | 2016-09-14 13:32 | VASCLAB ---
PROCEDURE: HISTORY: vertigo, vomiting COMPARISON: None available. TECHNIQUE: Grayscale and duplex Doppler evaluation of the cervical carotid and vertebral arteries were performed. The common carotid, carotid bifurcations and cervical Internal Carotid Artery (ICA) and proximal External Carotid Artery (ECA) were evaluated. The vertebral arteries were evaluated for gross patency and flow direction. Report prepared by Luis Angel Boothe, BS, RVT FINDINGS: RIGHT CAROTID ARTERIES: 1. Common Carotid Artery: No significant focal plaque formation of the right common carotid artery. Maximum Peak Systolic velocity: 68 cm/sec: End-diastolic velocity 16 cm/sec. 2. Carotid Bifurcation: plaque formation. Maximum Peak Systolic velocity: 61 cm/sec: End-diastolic velocity 14 cm/sec. 3. Internal Carotid Artery: Plaque description: 3.1. Proximal Segment: Peak systolic velocity 73 cm/sec: End-diastolic velocity 26 cm/sec - % stenosis 0-15% 3.2. Middle Segment: Peak systolic velocity 81 cm/sec: End-diastolic velocity 23 cm/sec - % stenosis 0-15% 3.3. Distal Segment: Peak systolic velocity 86 cm/sec: End-diastolic velocity 30 cm/sec - % stenosis 0-15% 4. External Carotid Artery: No significant focal plaque formation. Peak systolic velocity 117 cm/sec 5. ICA/CCA Ratio: 1.3 LEFT CAROTID ARTERIES: 1. Common Carotid Artery: No significant focal plaque formation of the left common carotid artery. Maximum Peak Systolic velocity: 60 cm/sec: End-diastolic velocity 17 cm/sec. 2. Carotid Bifurcation: plaque formation. Maximum Peak Systolic velocity: 46 cm/sec: End-diastolic velocity 10 cm/sec. 3. Internal Carotid Artery: Plaque description: 3.1. Proximal Segment: Peak systolic velocity 74 cm/sec: End-diastolic velocity 29 cm/sec - % stenosis 0-15% 3.2. Middle Segment: Peak systolic velocity 41 cm/sec: End-diastolic velocity 17 cm/sec - % stenosis 0-15% 3.3. Distal Segment: Peak systolic velocity 56 cm/sec: End-diastolic velocity 22 cm/sec - % stenosis 0-15% 4. External Carotid Artery: No significant focal plaque formation. Peak systolic velocity 71 cm/sec 5. ICA/CCA Ratio: 1.2 VERTEBRAL ARTERIES: 1. Right Vertebral Artery: The right vertebral artery flow direction is antegrade. 2. Left Vertebral Artery: The left vertebral artery flow direction is antegrade. OTHER FINDINGS: 1. Right Brachial Blood pressure: 168 mmHg. 2. Left Brachial Blood pressure: 160 mmHg. IMPRESSION: RIGHT: Duplex scan does not suggest hemodynamically significant stenosis of the right extracranial carotid arteries. LEFT: Duplex scan does not suggest hemodynamically significant stenosis of the left extracranial carotid arteries.
[2016-09-14 14:41] LABS: BASO % 0.7 % (0.0-2.0); EOS # 0.2 K/uL (0.0-0.7); EOS % 3.6 % (0.0-4.0); HEMATOCRIT 39.3 % (34.0-47.0); LYMPH # 2.1 K/uL (1.0-4.3); LYMPH % 40.6 % (20.0-40.0); MEAN CELL VOLUME 90.5 fL (81.0-99.0); MEAN CORPUSCULAR HEMOGLOBIN 29.1 pg (27.0-31.0); MEAN CORPUSCULAR HGB CONC 32.2 g/dL (33.0-37.0); MONO # 0.5 K/uL (0.0-0.8); MONO % 9.9 % (0.0-10.0); RED CELL DISTRIBUTION WIDTH 16.4 % (11.5-14.5); WHITE BLOOD COUNT 5.2 K/uL (4.8-10.8)
[2016-09-14 14:50] LABS: POTASSIUM 3.8 mmol/L (3.6-5.2)
[2016-09-14 14:52] LABS: ALB/GLOB RATIO 1.2 (1.0-2.1); BILIRUBIN,TOTAL 0.9 mg/dL (0.2-1.3); PHOSPHOROUS 3.6 mg/dL (2.5-4.5); TOTAL PROTEIN 6.6 g/dL (6.3-8.3)
[2016-09-14 14:53] LABS: CALCIUM 8.8 mg/dl (8.6-10.4); MAGNESIUM 2.1 mg/dL (1.6-2.3)
--- NOTE | 2016-09-14 16:01 | CP.PCM.PN ---
Subjective - Date & Time of Evaluation Date of Evaluation: 09/14/16 Time of Evaluation: 08:40 - Subjective Subjective: clinically same Objective - Vital Signs/Intake and Output Vital Signs (last 24 hours): Temp Pulse Resp BP Pulse Ox 98 F 60 20 150/88 98 09/14/16 07:24 09/14/16 07:24 09/14/16 07:24 09/14/16 07:24 09/14/16 07:24 Intake and Output: 09/14/16 09/14/16 06:59 18:59 Intake Total 750 500 Balance 750 500 - Medications Medications: Current Medications Aspirin (Ecotrin) 81 mg PO DAILY [facility] Last Admin: 09/14/16 09:31 Dose: 81 mg Atenolol (Tenormin) 50 mg PO DAILY [facility] Last Admin: 09/14/16 09:30 Dose: 50 mg Enoxaparin Sodium (Lovenox) 40 mg SC DAILY [facility] Last Admin: 09/14/16 09:31 Dose: 40 mg Ergocalciferol (Drisdol 50,000 Intl Units Cap) 1 cap PO Q7D [facility] Last Admin: 09/11/16 14:43 Dose: 1 cap Moxifloxacin HCl (Avelox Iv 400mg/250ml Ns) 400 mg in 250 mls @ 167 mls/hr IVPB Q24H [facility] Last Admin: 09/13/16 20:41 Dose: 167 mls/hr Losartan Potassium (Cozaar) 100 mg PO DAILY [facility] Last Admin: 09/14/16 09:30 Dose: 100 mg Meclizine HCl (Antivert) 25 mg PO Q8H [facility] Last Admin: 09/14/16 09:30 Dose: 25 mg Pantoprazole Sodium (Protonix Ec Tab) 40 mg PO DAILY [facility] Last Admin: 09/14/16 09:30 Dose: 40 mg Rosuvastatin Calcium (Crestor) 5 mg PO HS [facility] Last Admin: 09/13/16 21:39 Dose: 5 mg - Labs Labs: 09/14/16 14:25 09/14/16 14:25 - Constitutional Appears: Well - Head Exam Head Exam: ATRAUMATIC, NORMAL INSPECTION, NORMOCEPHALIC - Eye Exam Eye Exam: EOMI, Normal appearance, PERRL Pupil Exam: NORMAL ACCOMODATION, PERRL - ENT Exam ENT Exam: Mucous Membranes Moist, Normal Exam - Neck Exam Neck Exam: Full ROM, Normal Inspection. absent: Lymphadenopathy - Respiratory Exam Respiratory Exam: Decreased Breath Sounds - Cardiovascular Exam Cardiovascular Exam: REGULAR RHYTHM, +S1, +S2 - GI/Abdominal Exam GI & Abdominal Exam: Soft, Diminished Bowel Sounds - Rectal Exam Rectal Exam: Deferred
[2016-09-14 16:24] VITALS: BP 144/86; PULSE 76; O2SAT 99
== END 2016-09-14 16:41 | disposition home or self-care (01) | DRG 65 ==
LOC: C.ER 09:38 → C.9E 15:24 → C.3T 17:24 → OBSVTOIN 09-12 15:55
PROVIDERS: ADMIT Internal Medicine Nephrology; ATTEND Internal Medicine Nephrology
DX: R42 Dizziness and giddiness (principal); I67.2 Cerebral atherosclerosis; I10 Essential (primary) hypertension; N39.0 Urinary tract infection, site not specified; E55.9 Vitamin D deficiency, unspecified; J34.2 Deviated nasal septum